=== PATIENT | female | born 1950 | race Caucasian/White ===

== ENCOUNTER 2019-11-18 16:09 | Inpatient (IN) | payer MEDICARE, BC ==
[~2019-11-18] VITALS: Ht 160 cm; Wt 90.7 kg
[2019-11-18] MEDS ORDERED: COUMADIN6 MG PO (16:22)
[2019-11-18] MEDS ORDERED: VITAMIN B-121000 MCG PO (16:23)
[2019-11-18] MEDS ORDERED: SYNTHROID100 MCG PO (16:23)
[2019-11-18] MEDS ORDERED: K-TAB10 MEQ PO (16:24)
[2019-11-18] MEDS ORDERED: ZYLOPRIM100 MG PO (16:24)
[2019-11-18] MEDS ORDERED: WELLBUTRIN SR150 MG PO (16:24)
[2019-11-18] MEDS ORDERED: RANITIDINE HCL150 M1 PO (16:25)
[2019-11-18] MEDS ORDERED: COZAAR50 MG PO (16:25)
[2019-11-18] MEDS ORDERED: NORVASC2.5 MG PO (16:25)
[2019-11-18] MEDS ORDERED: HYDROXYCHLOROQUINE (16:25)
[2019-11-18] MEDS ORDERED: IMURAN50 MG PO (16:26)
[2019-11-18] MEDS ORDERED: PRAVACHOL20 MG PO (16:26)
[2019-11-18] MEDS ORDERED: COLACE100 MG PO (16:26)
[2019-11-18 17:19] LABS: BASOPHILS 0.7 % (0-2); LYMPHOCYTES 47.2 % (15-50); MCH 36.4 pg (26.0-34.0); MCHC 34.3 g/dL (31.0-37.0); MCV 106.2 fL (80.0-100.0); MEAN PLATELET VOLUME 10.2 fL (7.4-10.4); MONOCYTES 3.3 % (2-11); NEUTROPHILS 44.8 % (40-80); RDW 24.8 % (11.5-14.5)
[2019-11-18 17:28] LABS: INR 2.68 (0.85-1.17); PROTIME 27.8 SECONDS (11.6-15.0)
[2019-11-18 17:38] LABS: ANION GAP 17.2 mmol/L (8-16); CARBON DIOXIDE 20.8 mmol/L (21.0-32.0); CREATININE - SERUM 2.1 mg/dL (0.6-1.3)
[2019-11-18 17:49] LABS: HEMATOCRIT 17.2 % (36.0-48.0); HEMOGLOBIN 5.9 g/dL (12-16); RBC 1.62 10x6/uL (4.00-5.40)
[2019-11-18 17:51] LABS: PLATELET COUNT 100 10x3/uL (130-400)
[2019-11-18 17:53] LABS: ALBUMIN 3.9 g/dL (3.4-5.0); BILIRUBIN - TOTAL 0.38 mg/dL (0.2-1.3)
--- NOTE | 2019-11-18 18:40 | NUR ---
PT REPORTS SHE WAS CALLED BY HER PRIMARY CARE DR AND TOLD TO COME TO THE ER DUE TO A "CRITICALLY LOW BLOOD LEVEL" - SHE REPORTS A LONG HX OF COUMADIN USE SECONDARY TO TWO SEPARATE INCIDENTS OF DVTs - She is AAOx4 - ambulates indenpendently - VSS and at her reported baseline. she does report weakness and increased tiredness over the last few weeks. Occult blood specimen positive for blood.
[2019-11-18 18:49] LABS: % SATURATION 79 % (15-55); IRON 199 ug/dl (35-150); TOTAL IRON BIND CAPACITY 249 ug/dl (260-445); UNSAT IRON BIND CAPACITY 50 ug/dl (150-375)
[2019-11-19] VITALS (12 sets, daily range): BP systolic 118–183; BP diastolic 36–64; BMI 35.5
--- NOTE | 2019-11-19 01:51 | NUR ---
I have reviewed this patient and I concur with the Shift Assessment completed by the Licensed Practical Nurse today this shift.
[2019-11-19 07:39] LABS: MCH 33.2 pg (26.0-34.0); MCHC 33.8 g/dL (31.0-37.0); MEAN PLATELET VOLUME 10.5 fL (7.4-10.4); RDW 22.9 % (11.5-14.5); WBC 2.4 10x3/uL (4.8-10.8)
[2019-11-19 07:48] LABS: HEMATOCRIT 23.1 % (36.0-48.0); HEMOGLOBIN 7.8 g/dL (12-16); MCV 98.3 fL (80.0-100.0); PLATELET COUNT 68 10x3/uL (130-400); RBC 2.35 10x6/uL (4.00-5.40)
[2019-11-19 07:50] LABS: ANION GAP 14.9 mmol/L (8-16); CALCIUM 8.9 mg/dL (8.5-10.1); CARBON DIOXIDE 20.1 mmol/L (21.0-32.0); CREATININE - SERUM 1.7 mg/dL (0.6-1.3); PHOSPHOROUS 3.1 mg/dL (2.5-4.9)
--- NOTE | 2019-11-19 07:51 | NUR ---
ALERT AND ORIENTED. LUNGS CLEAR BILATERALLY. HEART SOUNDS S1 AND S2 HEARD IN ALL TIM. BOWEL SOUNDS ACTIVE X 4. SKIN INTACT WITHOUT REDNESS. IV TO RIGHT WRIST PATENT WITHOUT REDNESS. IV TO LEFT WRIST SL PATENT WITHOUT REDNESS. DENIES NEEDS. BED LOW. CALL ARTEAGA AND PERSONAL ITEMS IN REACH. WILL CONTINUE TO MONITOR.
[2019-11-19 08:13] LABS: INR 2.02 (0.85-1.17); PROTIME 22.2 SECONDS (11.6-15.0)
[2019-11-19 09:15] LABS: BASOPHILS 1 % (0-2); EOSINOPHILS 3 % (0-7); LYMPHOCYTES 34 % (15-50); MONOCYTES 5 % (2-11); NEUTROPHILS 56 % (40-80); PLATELET ESTIMATE DECREASED
--- NOTE | 2019-11-19 09:15 | NUR ---
CONSENTS SIGNED AND ON CHART FOR PROCEDURE.
[2019-11-19 09:57] LABS: HEMATOCRIT 24.2 % (36.0-48.0); HEMOGLOBIN 8.3 g/dL (12-16)
--- NOTE | 2019-11-19 14:35 | NUR ---
RESTING IN BED. POST OP VITALS REMAIN STABLE. WILL CONTINUE TO MONITOR.
[2019-11-19 16:50] LABS: HEMATOCRIT 23.6 % (36.0-48.0); HEMOGLOBIN 7.9 g/dL (12-16)
--- NOTE | 2019-11-19 19:51 | NUR ---
UP IN BED WITH FAMILY AT BEDSIDE. PLEASANT MOOD AND AFFECT, HAD SOME CONCERNS ABOUT DISEASE PROCESS, BUT WAS PLEASED WITH DR. MACKEY CONSULT. IV TO RIGHT WRIST IS INFUSING VIA PUMP PER ORDERS AND IV TO LEFT WRIST IS SL. DENIES PAIN AT THIS TIME. WILL NOTE ANY CHANGE.
[2019-11-19 23:29] LABS: HEMATOCRIT 21.4 % (36.0-48.0)
[2019-11-19 23:31] LABS: HEMOGLOBIN 7.2 g/dL (12-16)
--- NOTE | 2019-11-19 23:41 | NUR ---
DR. RENTERIA NOTIFIED OF 7.2HGB, ORDER VERIFIED TO GIVE ONE UNIT PRBC IF 0500 DRAW IS BELOW 7.
[2019-11-20] VITALS (10 sets, daily range): BP systolic 137–151; BP diastolic 55–74
--- NOTE | 2019-11-20 01:05 | NUR ---
I have reviewed this patient and I concur with the Shift Assessment completed by the Licensed Practical Nurse today this shift.
[2019-11-20 06:23] LABS: BASOPHILS 0.7 % (0-2); EOSINOPHILS 2.9 % (0-7); IMMATURE GRANULOCYTES 0.4 % (0-5); MCH 34.1 pg (26.0-34.0); MCHC 34.8 g/dL (31.0-37.0); MCV 98.1 fL (80.0-100.0); MEAN PLATELET VOLUME 10.5 fL (7.4-10.4); MONOCYTES 5.1 % (2-11); NEUTROPHILS 55.9 % (40-80); PLATELET COUNT 59 10x3/uL (130-400); RBC 2.14 10x6/uL (4.00-5.40); WBC 2.7 10x3/uL (4.8-10.8)
[2019-11-20 06:37] LABS: HEMOGLOBIN 7.3 g/dL (12-16)
[2019-11-20 06:50] LABS: ANION GAP 13.5 mmol/L (8-16); CALCIUM 8.1 mg/dL (8.5-10.1); CARBON DIOXIDE 21.1 mmol/L (21.0-32.0); CREATININE - SERUM 1.6 mg/dL (0.6-1.3); MAGNESIUM - SERUM 1.8 mg/dL (1.8-2.4); PHOSPHOROUS 2.5 mg/dL (2.5-4.9); POTASSIUM - SERUM 4.6 mmol/L (3.5-5.1)
[2019-11-20 06:58] LABS: INR 1.41 (0.85-1.17); PROTIME 16.7 SECONDS (11.6-15.0)
--- NOTE | 2019-11-20 09:47 | NUR ---
PT SITTING UP IN BED WATCHING TV. RESP EVEN AND UNLABORED. DENIES PAIN AT THIS TIME. IV TO RIGHT WRIST WITH 1/2 NS @ 50ML/HR INFUSING VIA PUMP. SITE WITHOUT REDNESS OR EDEMA. ALSO PROTONIX @ 10ML/HR INFUSING VIA PUMP. DENIES FURTHER NEEDS AT THIS TIME. CL WITHIN REACH. ENCOURAGED TO CALL WITH NEEDS. CONTINUE POC
[2019-11-20 10:56] LABS: HEMOGLOBIN 8.2 g/dL (12-16)
[2019-11-20 17:05] LABS: HEMOGLOBIN 8.7 g/dL (12-16)
--- NOTE | 2019-11-20 21:00 | NUR ---
A/O WITH NO SIGNS OF ACUTE DISTRESS. IV TO THE RT FOREARM WITH NO SWELLING OR REDNESS NOTED. DENIES NO NEEDS AT THIS TIME. CONTINUE PLAN OF CARE.
[2019-11-20 23:56] LABS: HEMATOCRIT 36.2 % (36.0-48.0); HEMOGLOBIN 12.2 g/dL (12-16)
[2019-11-21] VITALS: BP 121/49
[2019-11-21 04:00] VITALS: BP 101/59
[2019-11-21 05:11] LABS: HEMATOCRIT 23.3 % (36.0-48.0); HEMOGLOBIN 7.9 g/dL (12-16); MCH 32.8 pg (26.0-34.0); MCHC 33.9 g/dL (31.0-37.0); MCV 96.7 fL (80.0-100.0); MEAN PLATELET VOLUME 11.3 fL (7.4-10.4); PLATELET COUNT 53 10x3/uL (130-400); RBC 2.41 10x6/uL (4.00-5.40); RDW 21.6 % (11.5-14.5); WBC 2.8 10x3/uL (4.8-10.8)
[2019-11-21 05:14] LABS: APTT 36.7 SECONDS (22.8-39.4); INR 1.25 (0.85-1.17); PROTIME 15.2 SECONDS (11.6-15.0)
[2019-11-21 05:15] LABS: ANION GAP 13.4 mmol/L (8-16); CALCIUM 8.3 mg/dL (8.5-10.1); CARBON DIOXIDE 19.9 mmol/L (21.0-32.0); CREATININE - SERUM 1.5 mg/dL (0.6-1.3); MAGNESIUM - SERUM 1.7 mg/dL (1.8-2.4); PHOSPHOROUS 2.6 mg/dL (2.5-4.9); POTASSIUM - SERUM 4.3 mmol/L (3.5-5.1)
[2019-11-21 05:50] LABS: LYMPHOCYTES 33 % (15-50); MONOCYTES 3 % (2-11); NEUTROPHILS 64 % (40-80); PLATELET ESTIMATE DECREASED
--- NOTE | 2019-11-21 07:10 | NUR ---
PT RESTING IN BED. RESP EVEN AND UNLABORED. DENIES PAIN AT THIS TIME. PT VOICES NPO SINCE MIDNIGHT LAST NIGHT FOR UPCOMING PROCEDURE. IV TO RIGHT FOREARM WITH 1/2 NS @ 30ML/HR INFUSING VIA PUMP. SITE WITHOUT REDNESS OR EDEMA. DENIES FURTHER NEEDS AT THIS TIME. CL WITHIN REACH. ENCOURAGED TO CALL WITH NEEDS. CONTINUE POC
[2019-11-21 11:04] LABS: HEMATOCRIT 23.1 % (36.0-48.0); HEMOGLOBIN 7.9 g/dL (12-16)
[2019-11-21 12:36] VITALS: BP 136/62
[2019-11-21 13:00] VITALS: Ht 160 cm; Wt 90.7 kg
[2019-11-21 15:18] LABS: HEMATOCRIT 24.5 % (36.0-48.0); HEMOGLOBIN 8.5 g/dL (12-16)
[2019-11-21 20:00] VITALS: BP 155/61
[2019-11-21 23:22] LABS: HEMATOCRIT 25.6 % (36.0-48.0); HEMOGLOBIN 8.8 g/dL (12-16)
[2019-11-22] VITALS: BP 142/59
--- NOTE | 2019-11-22 02:56 | NUR ---
ASSESSED AT THE BEGINNING OF THE SHIFT. PT IS ALERT AND ORIENTED, ABLE TO VERBALIZE NEEDS. NOT VOICING ANY COMPLAINTS SHE IS UP AD RUBEN TO THE BATHROOM AND IS VERY PLEASANT WITH STAFF. THEY GABI BLOOD ORDERED AT AROUND MIDNIGHT AND IT WAS AAAAABOVE THE ORDERED TRANFUSION NEED. SHE HAS BEEN RESTING QUIET AND THE DRESSING TO HER BONE MARROW BIOPSY IS STILL WITH A DRESSING.
[2019-11-22 04:00] VITALS: BP 143/59
[2019-11-22 06:18] LABS: HEMATOCRIT 25.4 % (36.0-48.0); HEMOGLOBIN 8.6 g/dL (12-16); MCH 31.7 pg (26.0-34.0); MCHC 33.9 g/dL (31.0-37.0); MEAN PLATELET VOLUME 12.1 fL (7.4-10.4); PLATELET COUNT 50 10x3/uL (130-400); RBC 2.71 10x6/uL (4.00-5.40); RDW 21.5 % (11.5-14.5); WBC 2.8 10x3/uL (4.8-10.8)
[2019-11-22 06:21] LABS: INR 1.16 (0.85-1.17); PROTIME 14.2 SECONDS (11.6-15.0)
[2019-11-22 06:33] LABS: MCV 93.7 fL (80.0-100.0)
[2019-11-22 06:43] LABS: ANION GAP 16.6 mmol/L (8-16); CALCIUM 8.1 mg/dL (8.5-10.1); CARBON DIOXIDE 19.4 mmol/L (21.0-32.0); CREATININE - SERUM 1.6 mg/dL (0.6-1.3); MAGNESIUM - SERUM 1.7 mg/dL (1.8-2.4); PHOSPHOROUS 2.3 mg/dL (2.5-4.9)
[2019-11-22 07:05] LABS: BASOPHILS 1 % (0-2); EOSINOPHILS 4 % (0-7); LYMPHOCYTES 19 % (15-50); MONOCYTES 2 % (2-11); NEUTROPHILS 74 % (40-80); PLATELET ESTIMATE DECREASED
[2019-11-22 08:29] VITALS: BP 153/59
[2019-11-22 08:56] LABS: ERYTHROCYTE SEDIMENTATION RATE 51 mm/hr (0-30)
[2019-11-22 10:57] LABS: HEMATOCRIT 27.7 % (36.0-48.0); HEMOGLOBIN 9.4 g/dL (12-16)
[2019-11-22 12:52] VITALS: BP 107/65
--- NOTE | 2019-11-22 14:01 | MORECARE ---
CASE MANAGEMENT DISCHARGE SUMMARY PATIENT: XAVIER BLOOM UNIT: [id number] ADM DATE: 11/18/19 AGE: 69 : 49 SEX: F ROOM/BED: D.2230 AUTHOR: SEB WYATT PHYSICIAN: REFERRING PHYSICIAN: JENN MANUEL MD DATE OF SERVICE: 11/22/19 Discharge Plan Patient Name: XAVIER BLOOM Facility: [facility]:[place] : 1950 Planned Disposition: Home Anticipated Discharge Date: Discharge Date: Expected LOS: Initial Reviewer: [email or web address] Initial Review Date: 11/22/2019 Generated: 11/22/19 3:01 pm Comments DCP- Discharge Planning Updated by [email or web address]: Andie Marlow on 11/22/19 12:[address] Patient Name: XAVIER BLOOM Admission Status: ER Accout number: [id number] Admission Date: 11-18-2019 : 1950 Admission Diagnosis:ANEMIA, UNSPECIFIED Attending: JENN MANUEL Current LOS: 4 Anticipated DC Date: Planned Disposition: Home Primary Insurance: MEDICARE A & B Discharge Planning Comments: CM met with patient to complete initial dc planning assessment. CM educated patient on the CM role and verbal consent given by patient to complete assessment. Patient lives at home with her spouse. At discharge patient plans to return and feels this is a safe discharge. CM discussed availability of home health, rehab services, and medical equipment. Patient denied known discharge needs at this time. CM will continue to follow and will assist as needed with dc plans/needs. Product Support Engineer: Andie Marlow DCPIA - Discharge Planning Initial Assessment Updated by [email or web address]: Andie Marlow on 11/22/19 1:57 pm * Is the patient Alert and Oriented? Yes * How many steps to enter\exit or inside your home? 1/0 * PCP Dr. Sanchez * Pharmacy [facility] on [address] * Preadmission Environment Home with Family * ADLs Independent * Equipment CPAP * Other Equipment CPAP from [facility] * List name and contact numbers for known caregivers / representatives who currently or will assist patient after discharge: Milton Bloom - spouse - [phone] * Verbal permission to speak to the caregivers and representatives has been obtained from the patient. Yes * Community resources currently utilized None * Additional services required to return to the preadmission environment? No * Can the patient safely return to the preadmission environment? Yes * Has this patient been hospitalized within the prior 30 days at any hospital? No Patient Name: XAVIER BLOOM Page [id number] at 1401 All edits/amendments must be made on the electronic document DICTATION DATE: 11/22/191400 CHILD DAYCARE WORKER: SHER 11/22/19 1401 RPT#: [id number] DC DATE: STATUS: ADM IN [facility] [address] [place] [address] END OF REPORT
[2019-11-22 17:07] LABS: HEMOGLOBIN 9.2 g/dL (12-16)
[2019-11-22 18:14] VITALS: BP 123/66
[2019-11-22 20:00] VITALS: BP 108/60
[2019-11-23] VITALS: BP 137/60; BP 138/52
[2019-11-23 04:00] VITALS: BP 142/55
[2019-11-23 06:29] LABS: BASOPHILS 0.4 % (0-2); EOSINOPHILS 3.4 % (0-7); HEMOGLOBIN 8.2 g/dL (12-16); IMMATURE GRANULOCYTES 0.4 % (0-5); LYMPHOCYTES 31.4 % (15-50); MCHC 34.2 g/dL (31.0-37.0); MCV 93.8 fL (80.0-100.0); MONOCYTES 8.8 % (2-11); NEUTROPHILS 55.6 % (40-80); RBC 2.56 10x6/uL (4.00-5.40); RDW 20.8 % (11.5-14.5); WBC 2.6 10x3/uL (4.8-10.8)
[2019-11-23 06:30] LABS: PLATELET COUNT 41 10x3/uL (130-400)
[2019-11-23 06:42] LABS: ANION GAP 14.4 mmol/L (8-16); CALCIUM 7.8 mg/dL (8.5-10.1); CARBON DIOXIDE 19.6 mmol/L (21.0-32.0); CREATININE - SERUM 1.4 mg/dL (0.6-1.3); MAGNESIUM - SERUM 1.7 mg/dL (1.8-2.4); PHOSPHOROUS 2.7 mg/dL (2.5-4.9)
[2019-11-23 06:43] LABS: INR 1.2 (0.85-1.17); PROTIME 14.7 SECONDS (11.6-15.0)
--- NOTE | 2019-11-23 06:46 | NUR ---
ASSESSED AT THE BEGINNNG OF THE SHIFT. SHE IS ALERT AND ORIENTED, ABLE TO VERBALIZE NEEDS. AT THIS TIME SHE HAD ALOT OF FAMILY VISITING. SHE HAS REMAINED PLEASANT DURING THE NIGHT, TAKING HER MEDS OFFERED AND WATCHING TV OR MESSING WITH HER PHONE. WE DID NOT DRAW HER BLOOD AT MIDNIGHT BECAUSE SHE IS NOT HAVING DRAMATIC CHANGES AND SHE IS SO TIRED OF GETTING STUCK. SHE SLEPT SOME DURING THE NIGHT BUT WAS UP ALOT ALSO. NO COMPLAINTS HAVE BEEN VOICED AND SHE IS WATCHING THE NEWS NOW.
[2019-11-23 08:36] VITALS: BP 147/53
--- NOTE | 2019-11-23 08:38 | NUR ---
PATIENT AWAKE SITTING UP IN BED. NO NEEDS AT THIS TIME. STATES PAIN IS A 1 OUT OF 10 ON THE PAIN SCALE. CL IN REACH. WCTM
[2019-11-23 11:02] LABS: HEMATOCRIT 26.3 % (36.0-48.0)
[2019-11-23 11:08] LABS: APPEARANCE CLEAR (CLEAR); BILIRUBIN NEGATIVE (NEGATIVE); COLOR YELLOW (YELLOW); GLUCOSE NEGATIVE (NEGATIVE); KETONE NEGATIVE (NEGATIVE); NITRITE NEGATIVE (NEGATIVE); PROTEIN NEGATIVE (NEGATIVE); UROBILINOGEN NORMAL (NORMAL)
--- NOTE | 2019-11-23 12:35 | NUR ---
PATIENT CO HEADACHE. Britta TALAMANTES APN PRESCRIBED TYLENOL. PROVIDED TO PATIENT. IN ROOM. CL IN REACH. TM
[2019-11-23 13:31] VITALS: BP 142/62
--- NOTE | 2019-11-23 14:00 | NUR ---
WAITING ON DISCHARGE. PATIENT AND TAKING A NAP. CL IN REACH. WCTM.
[2019-11-23] MEDS ORDERED: COUMADIN6 MG PO (15:51)
--- NOTE | 2019-11-23 16:40 | NUR ---
IV THERAPY DC'ED FROM RIGHT HAND TIP INTACT. DISCHARGE INSTRUCTIONS GIVEN AND PATIENT VERBALIZED UNDERSTANDING. REFUSED WHEELCHAIR DOWN. CL IN REACH. WCTM
--- NOTE | 2019-11-24 10:38 | MORECARE ---
CASE MANAGEMENT DISCHARGE SUMMARY PATIENT: XAVIER BLOOM UNIT: [id number] ADM DATE: 11/18/19 AGE: 69 : 49 SEX: F ROOM/BED: D.2230 AUTHOR: SEB WYATT PHYSICIAN: REFERRING PHYSICIAN: JENN MANUEL MD DATE OF SERVICE: 11/24/19 Discharge Plan Patient Name: XAVIER BLOOM Facility: [facility]:[place] : 1950 Planned Disposition: Home Anticipated Discharge Date: Discharge Date: 11/23/2019 Expected LOS: Initial Reviewer: [email or web address] Initial Review Date: 11/22/2019 Generated: 11/24/19 11:38 am Comments DCP- Discharge Planning Updated by [email or web address]: Andie Marlow on 11/22/19 12:[address] Patient Name: XAVIER BLOOM Admission Status: ER Accout number: [id number] Admission Date: 11-18-2019 : 1950 Admission Diagnosis:ANEMIA, UNSPECIFIED Attending: JENN MANUEL Current LOS: 4 Anticipated DC Date: Planned Disposition: Home Primary Insurance: MEDICARE A & B Discharge Planning Comments: CM met with patient to complete initial dc planning assessment. CM educated patient on the CM role and verbal consent given by patient to complete assessment. Patient lives at home with her spouse. At discharge patient plans to return and feels this is a safe discharge. CM discussed availability of home health, rehab services, and medical equipment. Patient denied known discharge needs at this time. CM will continue to follow and will assist as needed with dc plans/needs. Blending Supervisor: Andie Marlow DCPIA - Discharge Planning Initial Assessment Updated by [email or web address]: Andie Marlow on 11/22/19 1:57 pm * Is the patient Alert and Oriented? Yes * How many steps to enter\exit or inside your home? 1/0 * PCP Dr. Sanchez * Pharmacy [facility] [address] * Preadmission Environment Home with Family * ADLs Independent * Equipment CPAP * Other Equipment CPAP from [facility] * List name and contact numbers for known caregivers / representatives who currently or will assist patient after discharge: Milton Bloom - spouse - [phone] * Verbal permission to speak to the caregivers and representatives has been obtained from the patient. Yes * Community resources currently utilized None * Additional services required to return to the preadmission environment? No * Can the patient safely return to the preadmission environment? Yes * Has this patient been hospitalized within the prior 30 days at any hospital? No Coverage Notice Reviewer: [email or web address] Gabriella Abraham Notice Issued Date-Time: 11/23/2019 16:15 Notice Type: IM Discharge Notice Notice Delivered To: Patient Relationship to Patient: Drafter (Cad) Electrical Name: Delivery Method: HAND - Hand Delivered Deepthi Days: Prior Verbal Notification: Recipient Understood Notice: Yes Recipient Signature: Yes Med Rec Note Co-signed by Attending: Coverage Notice Comment: Last DP export: 11/22/19 1:01 pm Patient Name: XAVIER BLOOM Page [id number] at 1038 All edits/amendments must be made on the electronic document DICTATION DATE: 11/24/19 1037 TIRE SERVICE SUPERVISOR: SHER 11/24/19 1037 RPT#: [id number] DC DATE:11/23/19 STATUS: DIS IN [facility] [address] [place] [address] END OF REPORT
[2019-11-27 06:09] LABS: LUPUS - INTERPRETATION Comment: (()); LUPUS - THROMBIN TIME 17.7 sec (0.0-23.0); LUPUS - dRVVT 64.1 sec (0.0-47.0); PTT-LA 49.2 sec (0.0-51.9)
== END 2019-11-23 16:58 | disposition home or self-care (01) | DRG 812 ==
LOC: D.ER 16:09 → D.MS 18:31
PROVIDERS: Emergency Medicine; Internal Medicine Medical Oncology; Specialist; ADMIT Family Medicine; ATTEND Family Medicine
PROC: 0DJ08ZZ Inspection of Upper Intestinal Tract, Via Natural or Artificial Opening Endoscopic (ICD-10-PCS; 2019-11-19)
PROC: 07DR3ZX Extraction of Iliac Bone Marrow, Percutaneous Approach, Diagnostic (ICD-10-PCS; principal; 2019-11-21 09:39)
DX: D64.89 Other specified anemias (principal); K92.2 Gastrointestinal hemorrhage, unspecified; N17.9 Acute kidney failure, unspecified; E03.9 Hypothyroidism, unspecified; I10 Essential (primary) hypertension; K21.9 Gastro-esophageal reflux disease without esophagitis; M32.9 Systemic lupus erythematosus, unspecified; D69.59 Other secondary thrombocytopenia; D70.2 Other drug-induced agranulocytosis

== ENCOUNTER → 2020-05-25 12:46 | Outpatient (CLI) | payer MEDICARE, BC ==
[2019-11-21 13:00] VITALS: BMI 35.4
[~2020-05-25 12:46] MED LIST: COLACE100 MG PO; COUMADIN6 MG PO; COZAAR50 MG PO; HYDROXYCHLOROQUINE; IMURAN50 MG PO; K-TAB10 MEQ PO; NORVASC2.5 MG PO; PRAVACHOL20 MG PO; RANITIDINE HCL150 M1 PO; SYNTHROID100 MCG PO; VITAMIN B-121000 MCG PO; WELLBUTRIN SR150 MG PO; ZYLOPRIM100 MG PO
== END | disposition home or self-care (01) ==
LOC: D.US 12:46
PROVIDERS: ATTEND Internal Medicine Medical Oncology
DX: D64.9 Anemia, unspecified (principal); D68.59 Other primary thrombophilia; D63.1 Anemia in chronic kidney disease; I80.11 Phlebitis and thrombophlebitis of right femoral vein; N18.3 Chronic kidney disease, stage 3 (moderate); R60.0 Localized edema